=== PATIENT | female | born 1960 | race Caucasian/White ===

== ENCOUNTER 2016-06-26 13:12 | Inpatient (IN) | payer OTHER, MEDICARE ==
[~2016-06-26] VITALS: Ht 170.2 cm; Wt 148.9 kg
[2016-06-26] MEDS ORDERED: OPTIRAY 350 100 ML VIAL HMH IV ONE (13:13)
[2016-06-26] MEDS ORDERED: DUONEB INH ONE ×2 (15:36)
[2016-06-26] MEDS ORDERED: SODIUM CHLORIDE 0.9% 1,000 ML ONE ×3 (16:20→18:06)
[2016-06-26] MEDS ORDERED: ENOXAPARIN 100 MG/ML SYR SUBQ ONE (20:20)
[2016-06-26] MEDS ORDERED: ENOXAPARIN 60 MG/0.6 ML SYR SUBQ ONE (20:20)
[2016-06-26] MEDS ORDERED: PHARMACY TO DOSE XX SCH (20:25)
[2016-06-26] MEDS ORDERED: SALINE FLUSH 10 ML FLUSH PRN (20:25)
[2016-06-26 22:24] VITALS: BP_SYST 110; BP_SYST 130; RESP 16; TEMP 99.3
[2016-06-26 22:25] VITALS: Ht 170.2 cm; Wt 148.9 kg
[2016-06-26] MEDS ORDERED: PNEUMO VAC 25 MCG/0.5 ML VL IM.VACC ONE (22:30)
[2016-06-26] MEDS ORDERED: ALPRAZOLAM 1 MG TAB PO PRN (22:45)
[2016-06-26] MEDS: LEVEMIR INSULIN SUBQ SCH (23:37)
[2016-06-26] MEDS: Atorvastatin 40 MG TAB PO SCH (23:50)
[2016-06-26] MEDS: TRAZODONE 100 MG TAB PO SCH (23:51)
[2016-06-26] MEDS: PREGABALIN 75 MG CAP PO SCH (23:51)
[2016-06-27] VITALS (7 sets, daily range): BP systolic 92–125; RESP 16–18; TEMP 97.4–98.4
[2016-06-27] MEDS: TRAZODONE 100 MG TAB PO SCH ×2 (01:25→22:49)
[2016-06-27] MEDS: SODIUM CHLORIDE 0.9% FLUSH BAG 500 ML IV SCH ×2 (06:00→19:12)
[2016-06-27] MEDS: ENOXAPARIN 150 MG/ML SYR SUBQ SCH ×2 (08:34→20:46)
[2016-06-27] MEDS: SALINE FLUSH 10 ML FLUSH SCH ×2 (08:34→20:45)
[2016-06-27] MEDS: PREGABALIN 75 MG CAP PO SCH ×2 (08:35→20:45)
[2016-06-27] MEDS: LISINOPRIL 20 MG TAB PO SCH (08:35)
[2016-06-27] MEDS: ALLOPURINOL 100 MG TAB PO SCH (08:35)
[2016-06-27] MEDS: OXYCODONE/APAP 7.5/325 TAB PO PRN (17:42)
[2016-06-27] MEDS: Atorvastatin 40 MG TAB PO SCH (20:45)
[2016-06-27] MEDS: LEVEMIR INSULIN SUBQ SCH (20:46)
[2016-06-28] VITALS (8 sets, daily range): BP systolic 93–119; RESP 16–19; TEMP 97.5–98.7
[2016-06-28] MEDS: LISINOPRIL 20 MG TAB PO SCH (09:00)
[2016-06-28] MEDS ORDERED: MISSING DOSE XX ONE (09:10)
[2016-06-28] MEDS: SALINE FLUSH 10 ML FLUSH SCH ×2 (09:12→21:10)
[2016-06-28] MEDS: ENOXAPARIN 150 MG/ML SYR SUBQ SCH ×2 (09:13→19:56)
[2016-06-28] MEDS: ALLOPURINOL 100 MG TAB PO SCH (09:13)
[2016-06-28] MEDS: PREGABALIN 75 MG CAP PO SCH ×2 (09:59→19:57)
[2016-06-28] MEDS: OXYCODONE/APAP 7.5/325 TAB PO PRN ×2 (15:55→21:59)
[2016-06-28] MEDS: SODIUM CHLORIDE 0.9% FLUSH BAG 500 ML IV SCH (19:22)
[2016-06-28] MEDS: FLUOXETINE 20 MG CAP PO SCH (19:57)
[2016-06-28] MEDS: Atorvastatin 40 MG TAB PO SCH (19:57)
[2016-06-28] MEDS: TRAZODONE 100 MG TAB PO SCH (19:57)
[2016-06-28] MEDS: LEVEMIR INSULIN SUBQ SCH (21:10)
[2016-06-29 03:55] VITALS: BP_SYST 114; RESP 18; TEMP 97.5
[2016-06-29 07:58] VITALS: BP_SYST 120; RESP 18; TEMP 98.4
[2016-06-29] MEDS: LISINOPRIL 20 MG TAB PO SCH (08:24)
[2016-06-29] MEDS: PREGABALIN 75 MG CAP PO SCH ×2 (08:24→20:41)
[2016-06-29] MEDS: METFORMIN 500 MG TAB PO SCH ×2 (08:24→20:40)
[2016-06-29] MEDS: ALLOPURINOL 100 MG TAB PO SCH (08:24)
[2016-06-29] MEDS: ENOXAPARIN 150 MG/ML SYR SUBQ SCH ×2 (08:25→20:39)
[2016-06-29] MEDS: SALINE FLUSH 10 ML FLUSH SCH ×2 (08:25→20:38)
[2016-06-29] MEDS ORDERED: MISSING DOSE XX ONE (09:20)
[2016-06-29] MEDS: FLUOXETINE 20 MG CAP PO SCH (10:13)
[2016-06-29 11:11] VITALS: BP_SYST 102; RESP 18; TEMP 97.6
[2016-06-29 15:20] VITALS: BP_SYST 94; RESP 18; TEMP 98.4
[2016-06-29] MEDS: OXYCODONE/APAP 7.5/325 TAB PO PRN ×2 (15:22→22:22)
[2016-06-29 19:37] VITALS: BP_SYST 103; RESP 16; TEMP 98.4
[2016-06-29] MEDS: Atorvastatin 40 MG TAB PO SCH (20:40)
[2016-06-29] MEDS: LEVEMIR INSULIN SUBQ SCH (20:40)
[2016-06-29] MEDS: TRAZODONE 100 MG TAB PO SCH (22:22)
[2016-06-30] VITALS (7 sets, daily range): BP systolic 98–122; RESP 16–18; TEMP 97.2–99.2
[2016-06-30] MEDS: SODIUM CHLORIDE 0.9% FLUSH BAG 500 ML IV SCH (05:44)
[2016-06-30] MEDS: METFORMIN 500 MG TAB PO SCH ×2 (08:14→21:52)
[2016-06-30] MEDS: OXYCODONE/APAP 7.5/325 TAB PO PRN ×3 (08:14→21:51)
[2016-06-30] MEDS: SALINE FLUSH 10 ML FLUSH SCH ×2 (08:15→21:50)
[2016-06-30] MEDS: ALLOPURINOL 100 MG TAB PO SCH (08:15)
[2016-06-30] MEDS: FLUOXETINE 20 MG CAP PO SCH (08:15)
[2016-06-30] MEDS: LISINOPRIL 20 MG TAB PO SCH (08:15)
[2016-06-30] MEDS: PREGABALIN 75 MG CAP PO SCH ×2 (08:15→21:52)
[2016-06-30] MEDS: ENOXAPARIN 150 MG/ML SYR SUBQ SCH ×2 (08:16→21:50)
[2016-06-30] MEDS ORDERED: WARFARIN 4 MG TAB PO ONE (21:15)
[2016-06-30] MEDS: TRAZODONE 100 MG TAB PO SCH (21:51)
[2016-06-30] MEDS: Atorvastatin 40 MG TAB PO SCH (21:52)
[2016-06-30] MEDS: LEVEMIR INSULIN SUBQ SCH (21:52)
[2016-07-01] MEDS: SODIUM CHLORIDE 0.9% FLUSH BAG 500 ML IV SCH (05:49)
[2016-07-01 07:26] VITALS: BP_SYST 119; RESP 16; TEMP 98.3
[2016-07-01] MEDS: SALINE FLUSH 10 ML FLUSH SCH ×2 (08:14→21:50)
[2016-07-01] MEDS: ENOXAPARIN 150 MG/ML SYR SUBQ SCH ×2 (08:15→21:51)
[2016-07-01] MEDS: PREGABALIN 75 MG CAP PO SCH ×2 (08:15→21:52)
[2016-07-01] MEDS: ALLOPURINOL 100 MG TAB PO SCH (08:16)
[2016-07-01] MEDS: METFORMIN 500 MG TAB PO SCH ×2 (08:16→21:51)
[2016-07-01] MEDS: FLUOXETINE 20 MG CAP PO SCH (08:16)
[2016-07-01] MEDS: LISINOPRIL 20 MG TAB PO SCH (08:19)
[2016-07-01] MEDS: OXYCODONE/APAP 7.5/325 TAB PO PRN ×2 (10:22→17:30)
[2016-07-01 10:57] VITALS: BP_SYST 91; RESP 18; TEMP 98
[2016-07-01 15:15] VITALS: BP_SYST 92; RESP 16; TEMP 98.4
[2016-07-01 20:41] VITALS: BP_SYST 99; RESP 16; TEMP 98.3
[2016-07-01] MEDS: TRAZODONE 100 MG TAB PO SCH (21:51)
[2016-07-01] MEDS: Atorvastatin 40 MG TAB PO SCH (21:51)
[2016-07-01] MEDS: LEVEMIR INSULIN SUBQ SCH (21:52)
[2016-07-01 23:17] VITALS: BP_SYST 97; RESP 16; TEMP 97.8
[2016-07-02] VITALS (7 sets, daily range): BP systolic 105–119; RESP 16–25; TEMP 97.2–98.4
[2016-07-02] MEDS: SODIUM CHLORIDE 0.9% FLUSH BAG 500 ML IV SCH (05:48)
[2016-07-02] MEDS: SALINE FLUSH 10 ML FLUSH SCH ×2 (08:49→20:43)
[2016-07-02] MEDS: METFORMIN 500 MG TAB PO SCH ×2 (08:50→20:43)
[2016-07-02] MEDS: PREGABALIN 75 MG CAP PO SCH ×2 (08:50→20:43)
[2016-07-02] MEDS: ALLOPURINOL 100 MG TAB PO SCH (08:50)
[2016-07-02] MEDS: FLUOXETINE 20 MG CAP PO SCH (08:50)
[2016-07-02] MEDS: ENOXAPARIN 150 MG/ML SYR SUBQ SCH ×2 (08:51→20:44)
[2016-07-02] MEDS ORDERED: WARFARIN 4 MG TAB PO ONE (12:05)
[2016-07-02] MEDS: OXYCODONE/APAP 7.5/325 TAB PO PRN ×2 (12:35→20:45)
[2016-07-02] MEDS: Atorvastatin 40 MG TAB PO SCH (20:43)
[2016-07-02] MEDS: TRAZODONE 100 MG TAB PO SCH (20:45)
[2016-07-02] MEDS: LEVEMIR INSULIN SUBQ SCH (20:46)
[2016-07-03] MEDS: TRAZODONE 100 MG TAB PO SCH (01:14)
[2016-07-03 03:05] VITALS: BP_SYST 98; RESP 16; TEMP 97.5
[2016-07-03] MEDS: SODIUM CHLORIDE 0.9% FLUSH BAG 500 ML IV SCH (05:48)
[2016-07-03 08:13] VITALS: BP_SYST 149; RESP 20; TEMP 97.4
[2016-07-03] MEDS: SALINE FLUSH 10 ML FLUSH SCH (08:51)
[2016-07-03] MEDS: METFORMIN 500 MG TAB PO SCH (08:52)
[2016-07-03] MEDS: ALLOPURINOL 100 MG TAB PO SCH (08:52)
[2016-07-03] MEDS: PREGABALIN 75 MG CAP PO SCH (08:52)
[2016-07-03] MEDS: FLUOXETINE 20 MG CAP PO SCH (08:52)
[2016-07-03] MEDS: ENOXAPARIN 150 MG/ML SYR SUBQ SCH (08:52)
[2016-07-03 08:59] VITALS: BP_SYST 122
[2016-07-03 12:21] VITALS: BP_SYST 120; RESP 18; TEMP 97.7
[2016-07-03 12:28] VITALS: BP_SYST 120; RESP 18; TEMP 97.7
== END 2016-07-03 13:06 | disposition home or self-care (01) | DRG 176 ==
LOC: ENRESERVTM → ENRESERVDT → ER 13:12 → ENPENDDIS 20:25 → EMR 20:25 → 4THW 21:25
PROVIDERS: ADMIT Internal Medicine; ATTEND Internal Medicine
DX: I26.99 Other pulmonary embolism without acute cor pulmonale (principal); E11.40 Type 2 diabetes mellitus with diabetic neuropathy, unspecified; Z68.43 Body mass index [BMI] 50.0-59.9, adult; E78.5 Hyperlipidemia, unspecified; G47.33 Obstructive sleep apnea (adult) (pediatric); F41.9 Anxiety disorder, unspecified; G47.00 Insomnia, unspecified; E11.65 Type 2 diabetes mellitus with hyperglycemia; E66.01 Morbid (severe) obesity due to excess calories; J20.8 Acute bronchitis due to other specified organisms
CPT/HCPCS: 36415; 71020; 71260; 80053; 82553; 82947; 83036; 83880; 84484; 85025; 85379; 85610; 93005; 93306; 93970; 94640; 94660; 94799; 96360; 96361; 96372